=== PATIENT | female | born 1990 | race Caucasian/White ===

== ENCOUNTER 2021-01-24 09:19 | Emergency (ER) | payer BC ==
[2021-01-24 10:17] LABS: ANION GAP 14.2 meq/L (7-15); CHLORIDE,CL 103 mmol/L (98-107); SODIUM,NA 138 mmol/L (136-145)
[2021-01-24] MEDS ORDERED: Potassium Chloride 20 MEQ Tab.ER PO ONE (10:19)
[2021-01-24] MEDS ORDERED: Magnesium Oxide 400 MG Tab PO ONE (10:19)
--- NOTE | 2021-01-24 10:40 | EDM.PDOC ---
ED HPI GENERAL MEDICAL PROBLEM - General Chief Complaint: General Stated Complaint: covid postive, increasing fatigue Time Seen by Provider: 01/24/21 09:45 Source of Information: Reports: Patient History Limitations: Reports: No Limitations - History of Present Illness INITIAL COMMENTS - FREE TEXT/NARRATIVE: Patient referred here to ER from [place] due to ongoing fatigue from Covid. Symptoms started on Jan 16. Lost sense taste/smell. Otherwise is doing relatively well. No SOB. Minimal cough. No GI changes. Mild back ache. Main concern is that her fatigue/malaise is not showing signs of improvement. back Pain Score (Numeric/FACES): 6 - Related Data Allergies Allergy/AdvReac Type Severity Reaction Status Date / Time No Known Allergies Allergy Verified 01/24/21 09:20 Home Meds: Home Meds Multivitamin 1 each PO DAILY 01/24/21 [History] Past Medical History HEENT History: Reports: Impaired Vision, Other (See Below) Other HEENT History: wears glasses for reading at times [employer] History: Reports: Musculoskeletal History: Reports: Fracture Other Musculoskeletal History: left elbow - Past Surgical History Female Surgical History: Reports: Section Social & Family History - Tobacco Use Tobacco Use Status *Q: Never Tobacco User - Caffeine Use Caffeine Use: Reports: Coffee - Recreational Drug Use Recreational Drug Use: No ED ROS GENERAL - Review of Systems Review Of Systems: Comprehensive ROS is negative, except as noted in HPI. ED EXAM, GENERAL - Physical Exam Exam: See Below Exam Limited By: No Limitations General Appearance: Alert, WD/WN, No Apparent Distress Eye Exam: Bilateral Eye: EOMI, PERRL Ears: Normal External Exam, Hearing Grossly Normal, Other (right TM completely blocked by cerumen) Ear Exam: Left Ear: TM normal Nose: Normal Inspection Throat/Mouth: Normal Inspection, Normal Lips, Normal Voice, No Airway Compromise Head: Atraumatic, Normocephalic Neck: Normal Inspection, Supple, Non-Tender, Full Range of Motion. No: Lymphade nopathy (L), Lymphadenopathy (R) Respiratory/Chest: No Respiratory Distress, Lungs Clear, Normal Breath Sounds, No Accessory Muscle Use, Chest Non-Tender Cardiovascular: Regular Rate, Rhythm, No Murmur GI/Abdominal: Normal Bowel Sounds, Soft, Non-Tender, No Distention (Female) Exam: Deferred Rectal (Female) Exam: Deferred Back Exam: No: CVA Tenderness (L), CVA Tenderness (R), Muscle Spasm Extremities: Normal Inspection, Normal Range of Motion, Non-Tender, Normal Capillary Refill Neurological: Alert, Oriented, Normal Cognition, No Motor/Sensory Deficits Psychiatric: Normal Affect, Normal Mood Skin Exam: Warm, Dry, Intact, Normal Color Course - Vital Signs Last Recorded V/S: Last Vital Signs Temp 36.6 C 01/24/21 09:20 Pulse 87 01/24/21 09:20 Resp 16 01/24/21 09:20 BP 103/55 L 01/24/21 09:20 Pulse Ox 99 01/24/21 09:20 - Orders/Labs/Meds Labs: Laboratory Tests 01/24/21 01/24/21 01/24/21 Range/Units 09:45 09:45 09:55 WBC 3.5 L (4.0-10.2) K/uL RBC 4.79 (3.77-5.09) M/uL Hgb 13.8 (11.7-15.5) g/dL Hct 41.7 (34.0-46.0) % MCV 87.1 (84.0-98.0) fL MCH 28.8 (28.2-33.3) pg MCHC 33.1 (31.7-36.0) g/dL RDW 14.4 H (11.2-14.1) % Plt Count 174 (150-350) K/uL Neut % (Auto) 44.6 L (45.0-80.0) % Lymph % (Auto) 46.7 (10.0-50.0) % Colbert % (Auto) 8.7 (2.0-14.0) % Eos % (Auto) 0.0 (0.0-5.0) % Baso % (Auto) 0.0 (0.0-2.0) % Neut # (Auto) 1.54 (1.40-7.00) K/uL Lymph # (Auto) 1.61 (0.50-3.50) K/uL Colbert # (Auto) 0.30 (0.00-1.00) K/uL Eos # (Auto) 0.00 (0.00-0.50) K/uL Baso # (Auto) 0.00 (0.00-0.20) K/uL Sodium 138 (136-145) mmol/L Potassium 3.4 L (3.5-5.1) mmol/L Chloride 103 (98-107) mmol/L Carbon Dioxide 24.2 (21.0-32.0) mmol/L Anion Gap 14.2 (7-15) meq/L BUN 10 (7-18) mg/dL Creatinine 0.87 (0.51-1.17) mg/dL Est Cr Clr Drug Dosing 85.08 mL/min Estimated GFR (MDRD) > 60 mL/min Glucose 118 H (70-99) mg/dL Calcium 8.2 L (8.5-10.1) mg/dL Magnesium 1.7 L (1.8-2.4) mg/dL Total Bilirubin 0.3 (0.2-1.0) mg/dL AST 22 (15-37) U/L ALT 24 (12-78) U/L Alkaline Phosphatase 52 (46-116) IU/L Total Protein 7.5 (6.4-8.2) g/dL Albumin 3.5 (3.4-5.0) g/dL Specimen Type Urincc Urine Color Yellow Urine Appearance Clear Urine pH 6.0 (5.0-9.0) Ur Specific [place] 1.015 (1.005-1.030) Urine Protein Negative (NEGATIVE) mg/dL Urine Glucose (UA) Negative (NEGATIVE) mg/dL Urine Ketones Negative (NEGATIVE) mg/dL Urine Occult Blood Negative (NEGATIVE) Urine Nitrite Negative (NEGATIVE) Urine Bilirubin Negative (NEGATIVE) Urine Urobilinogen 0.2 (0.2-1.0) E.U./dL Ur Leukocyte Esterase Negative (NEGATIVE) Urine RBC 0-5 /HPF Urine WBC 0-5 /HPF Ur Epithelial Cells Few /LPF Urine Bacteria Few (NONE TO FEW) /HPF Meds: Medications Discontinued Medications Generic Name Dose Route Start Last Admin Trade Name Freq PRN Reason Stop Dose Admin Magnesium Oxide 800 mg 01/24/21 10:19 Magnesium Oxide 400 Mg Tab PO 01/24/21 10:20 ONETIME ONE Potassium Chloride 40 meq 01/24/21 10:19 Potassium Chloride 20 Meq Tab.Er PO 01/24/21 10:20 ONETIME ONE - Re-Assessments/Exams Free Text/Narrative Re-Assessment/Exam: 01/24/21 10:58 WBC 3.5 K 3.4 Mag 1.7 Vital signs stable with very good O2 sats on room air. Overall unremarkable exam. Patient does not have any chronic medical conditions and is already 8 days into infection. Is not a candidate for monoclonals. Patient reassured and advised that it can take weeks/months for Covid related s ymptoms to improve, and to give things time. Rest/hydration/good nutrition emphasized. To follow up as needed if things worsen. Single dose K and Mag given. Recommended to start Mag and Vit D. Should have clinic retest Mag level in 4 weeks. Also recommend Vit D level be checked at same time. Departure - Departure Time of Disposition: 10:20 Disposition: Home, Self-Care 01 Condition: Good Clinical Impression: COVID-19 virus infection - Discharge Information *PRESCRIPTION DRUG MONITORING PROGRAM REVIEWED*: Not Applicable *COPY OF PRESCRIPTION DRUG MONITORING REPORT IN PATIENT ROBERT: Not Applicable Instructions: 10 Things You Can Do to Manage Your COVID-19 Symptoms at Home - [facility] (08/30/2020), Frequently Asked Questions About COVID-19 Vaccination - [facility] (10/18/2020) Referrals: PCP,Unknown [Primary Care Provider] - Forms: ED Department Discharge Additional Instructions: Home/rest/stay hydrated. Get hold of Magnesium Glycinate. Start taking 400-500mg daily. Get your Mag levels checked again in one month. If they are improved/not too high, continue to take the Magnesium as you will likely drop too low again if you stop. Give this more time. As we discussed, it can take a long time for Covid fatigue to go away after you get infected. Look at [employer] and check the page for supplements that might help. They will give the evidence scale (strong vs mild) as to research that backs if the supplements can be helpful. Get a good meal replacement/protein shake and try to drink that 1-2 times a day to help with nutrition since you cannot taste anything and your appetite is poor. This will help with a balanced diet while you recover. There are many brands out there. [employer] of [employer] is one good option. Follow up as needed if you have worsening symptoms/other problems or concerns. Sepsis Event Note (ED) - Evaluation Sepsis Screening Result: No Definite Risk - Focused Exam Vital Signs: Vital Signs Temp Pulse Resp BP Pulse Ox 01/24/21 09:20 36.6 C 87 16 103/55 L 99
== END 2021-01-24 10:57 | disposition home or self-care (01) ==
LOC: LL.ED 09:19
DX: U07.1 COVID-19 (principal)
CPT/HCPCS: 36415; 80053; 81001; 83735; 85025; 99283

== ENCOUNTER 2021-10-18 15:12 | Emergency (ER) | payer OTHER, BC ==
[2021-10-18] MEDS ORDERED: Sodium Chloride 0.9% 10 ML Syringe FLUSH PRN (15:23)
[2021-10-18] MEDS ORDERED: Morphine 2 MG/ML SYRINGE IVPUSH ONE (15:23)
== END 2021-10-18 16:50 | disposition home or self-care (01) ==
LOC: LL.ED 15:12
DX: S93.401A Sprain of unspecified ligament of right ankle, initial encounter (principal); S80.211A Abrasion, right knee, initial encounter; M79.671 Pain in right foot; V89.0XXA Person injured in unspecified motor-vehicle accident, nontraffic, initial encounter
CPT/HCPCS: 73610; 73630; 96374; 99283; J2270; J3490